=== PATIENT | male | born 1955 | race Two or more races ===

== ENCOUNTER 2020-09-27 11:51 | Outpatient (CLI) | payer OTHER ==
[~2020-09-27 11:51] MED LIST: LISINOPRIL; MOTRIN600 MG
== END 2020-09-27 12:03 | disposition home or self-care (01) ==
LOC: LAB 11:51
PROVIDERS: ATTEND Internal Medicine Hematology & Oncology
DX: K29.40 Chronic atrophic gastritis without bleeding (principal); K90.89 Other intestinal malabsorption

== ENCOUNTER 2020-09-28 11:48 | Outpatient (CLI) | payer OTHER | END 2020-09-28 15:00 | disposition home or self-care (01) | LOC: LAB 11:48 | PROVIDERS: ATTEND Internal Medicine Hematology & Oncology | DX: K29.40 Chronic atrophic gastritis without bleeding (principal); K90.0 Celiac disease ==

== ENCOUNTER 2021-03-17 15:41 | Emergency (ER) | payer OTHER ==
[~2021-03-17] VITALS: Ht 172.7 cm; Wt 97.5 kg
[2021-03-17] MEDS ORDERED: NADOLOL20 MG (15:51)
[2021-03-17] MEDS ORDERED: METRONIDAZOLE500 MG PO (20:51)
[2021-03-17] MEDS ORDERED: INTESTINEX680 M2 PO (20:51)
[2021-03-17] MEDS ORDERED: LEVSIN0.125 MG PO (20:51)
[2021-03-17] MEDS ORDERED: CIPRO500 MG PO (20:51)
[2021-03-17] MEDS ORDERED: PEPCID AC20 MG PO (20:51)
== END 2021-03-17 22:01 | disposition home or self-care (01) ==
LOC: ER 15:41
DX: K52.9 Noninfective gastroenteritis and colitis, unspecified (principal)

== ENCOUNTER 2022-09-09 15:49 | Emergency (ER) | payer OTHER ==
[~2022-09-09] VITALS: Ht 167.6 cm; Wt 97.5 kg
[~2022-09-09 15:49] MED LIST changes: +CIPRO500 MG PO; +INTESTINEX680 M2 PO; +LEVSIN0.125 MG PO; +METRONIDAZOLE500 MG PO; +NADOLOL20 MG; +PEPCID AC20 MG PO
== END 2022-09-09 20:40 | disposition home or self-care (01) ==
LOC: ER 15:49
DX: R10.32 Left lower quadrant pain (principal); Z91.013 Allergy to seafood; R31.9 Hematuria, unspecified

== ENCOUNTER 2024-12-25 13:14 | Emergency (ER) | payer OTHER ==
[~2024-12-25] VITALS: Ht 172.7 cm; Wt 98.9 kg
[2024-12-25] MEDS ORDERED: COMBIGAN EYE DRO5 ML (13:32)
[2024-12-25] MEDS ORDERED: NADOLOL20 MG PO (13:33)
[2024-12-25] MEDS ORDERED: EZETIMIBE-SIMV1 EAC1 PO (13:33)
[2024-12-25] MEDS ORDERED: VALACYCLOVIR1000 MG PO (13:33)
[2024-12-25] MEDS ORDERED: CLOBETASOL PROP15 GM TP (13:33)
[2024-12-25] MEDS ORDERED: PRED FORTE5 ML OP (13:33)
[2024-12-25] MEDS ORDERED: DORZOLAMIDE HCL10 ML OP (13:33)
[2024-12-25] MEDS ORDERED: LANSOPRAZOLE30 MG PO (13:33)
[2024-12-25] MEDS ORDERED: FAMOTIDINE20 MG (13:34)
[2024-12-25] MEDS ORDERED: EYLEA2 MG/0.01 (13:34)
[2024-12-25] MEDS ORDERED: OCUSOFT LID SC1 EAC1 (13:34)
[2024-12-25] MEDS ORDERED: SYSTANE 0.3-0.415 ML (13:34)
[2024-12-25] MEDS ORDERED: ROSUVASTATIN CA40 MG (13:34)
[2024-12-25] MEDS ORDERED: BRIMONIDINE-TIMO5 ML (13:34)
[2024-12-25] MEDS ORDERED: PREDNISOLONE ACE5 ML (13:34)
[2024-12-25 16:11] LABS: BASO % 0.5 % (0.1-1.2); EOS # 0.18 (0.04-0.54); EOS % 2.5 % (0.7-7.0); LYMPH # 1.76 (1.18-3.74); LYMPH % 24.2 % (19.3-53.1); MEAN PLATELET VOLUME 11.40 fl (9.4-12.4); MONO # 0.47 (0.24-0.82); MONO % 6.5 % (4.7-12.5); NEUT # 4.80 (1.56-6.13); NEUT % 65.9 % (34.0-71.1); RED CELL DISTRIBUTION WIDTH 13.2 % (11.6-14.4)
[2024-12-25 16:40] LABS: ALT/SGPT 30.0 U/L (12-78); AST/SGOT 17.0 U/L (15-37); BILIRUBIN TOTAL 0.88 mg/dL (0.3-1.2); BUN CREA RATIO 12.0 (7.0-25.0); CREATININE SERUM 0.98 mg/dL (0.70-1.30); GFR 75.4; GLOBULINA 3.2 G/DL (2.4-3.5); GLUCOSE FASTING 195.0 mg/dL (65-100); OSMOLALITY SERUM 286.0 MOSM/KG (275-295)
[2024-12-25] MEDS ORDERED: KETOROLAC TROMETHAMINE 30 MG VIAL IM ONE (17:30)
[2024-12-25] MEDS ORDERED: KETOROLAC TROMETHAMINE 30 MG VIAL ONE (17:44)
[2024-12-25 21:23] VITALS: BP 132/79; O2SAT 99
== END 2024-12-25 21:24 ==
LOC: ER 13:15
PROVIDERS: General Practice
DX: M79.622 Pain in left upper arm (principal); I48.91 Unspecified atrial fibrillation; L40.59 Other psoriatic arthropathy; H40.89 Other specified glaucoma; Z91.013 Allergy to seafood; R07.89 Other chest pain
CPT/HCPCS: 36415; 96372; J1885